=== PATIENT | female | born 1990 | race Hispanic/Latino ===

== ENCOUNTER 2022-03-10 10:11 | Observation (INO) | payer OTHER ==
[~2022-03-10] VITALS: Ht 149.9 cm; Wt 59.9 kg
[2022-03-10 10:12] VITALS: BP 132/85
[2022-03-10] MEDS ORDERED: LACTATED RINGERS 1000ML 1,000 ML IV SCH (10:30)
[2022-03-10 10:40] LABS: INFLUENZA TYPE A NEGATIVE FOR TYPE A (NEG); INFLUENZA TYPE B NEGATIVE FOR TYPE B (NEG)
[2022-03-10 10:56] LABS: APPEARANCE,URINE Clear (CLEAR); BILIRUBIN,URINE Negative (NEGATIVE); COLOR,URINE Yellow (YELLOW); GLUCOSE, URINE (UA) Negative (NEGATIVE); KETONES,URINE 40 mg/dL (NEGATIVE); LEUKOCYTE ESTERASE ,URINE Negative (NEGATIVE); NITRATE,URINE Negative (NEGATIVE); OCCULT BLOOD,URINE Negative (NEGATIVE); PH,URINE 6.5 (5.0-8.0); PROTEIN,URINE Trace mg/dL (NEGATIVE); UROBILINOGEN,URINE 0.2 mg/dL (0.2-1.0)
[2022-03-10] MEDS ORDERED: ONDANSETRON 4MG INJ IVP SCH (12:00)
== END 2022-03-10 12:45 | disposition home or self-care (01) ==
LOC: EDH 10:11 → LDH 10:12
PROVIDERS: ADMIT Obstetrics & Gynecology; ATTEND Obstetrics & Gynecology
DX: O21.2 Late vomiting of pregnancy (principal); Z20.822 Contact with and (suspected) exposure to COVID-19; O26.893 Other specified pregnancy related conditions, third trimester; R19.7 Diarrhea, unspecified; Z3A.31 31 weeks gestation of pregnancy
CPT/HCPCS: 81003; 87635; 87804 ×2; 96361; 96374; G0378 ×2; G0379; J2405; J7120; 96360

== ENCOUNTER 2023-01-06 04:30 | Emergency (ER) | payer OTHER ==
[~2023-01-06] VITALS: Ht 149.9 cm; Wt 56.7 kg
[2023-01-06] MEDS ORDERED: ONDANSETRON 4MG INJ ONE (04:51)
[2023-01-06] MEDS ORDERED: MORPHINE 4 MG SYG ONE (04:51)
[2023-01-06] MEDS ORDERED: MORPHINE 4 MG SYG IVP ONE (05:00)
[2023-01-06] MEDS ORDERED: ONDANSETRON 4MG INJ IVP ONE (05:00)
[2023-01-06 05:08] LABS: BASOPHILS % (AUTO) 0.4 % (0.0-5.0); EOSINOPHILS % (AUTO) 1.3 % (0.0-8.0); HEMATOCRIT 36.3 % (36-48); LYMPHOCYTES % (AUTO) 32.3 % (21.0-51.0); MEAN CORPUSCULAR HEMOGLOBIN 29.7 pg (27.0-33.0); MEAN CORPUSCULAR HGB CONC 33.3 g/dL (32.0-36.0); MEAN CORPUSCULAR VOLUME 89.2 fL (79-99); MONOCYTES % (AUTO) 5.2 % (3.0-13.0); NEUTROPHILS % (AUTO) 60.4 % (40.0-77.0); PLATELET COUNT (AUTO) 362 K/uL (130-400); RED BLOOD CELL COUNT(AUTO) 4.07 MIL/uL (4.00-5.50); RED CELL DISTRIBUTION WIDTH 13.6 % (11.0-15.5); WHITE BLOOD COUNT (AUTO) 13.4 K/uL (4.8-10.8)
[2023-01-06 05:12] LABS: APPEARANCE,URINE CLOUDY (CLEAR); BILIRUBIN,URINE NEGATIVE (NEGATIVE); COLOR,URINE YELLOW (YELLOW); GLUCOSE, URINE (UA) NEGATIVE (NEGATIVE); KETONES,URINE NEGATIVE (NEGATIVE); LEUKOCYTE ESTERASE ,URINE NEGATIVE Leu/uL (NEGATIVE); NITRATE,URINE NEGATIVE (NEGATIVE); OCCULT BLOOD,URINE LARGE (NEGATIVE); PROTEIN,URINE 30 mg/dL (NEGATIVE); UROBILINOGEN,URINE 0.2 mg/dL (0.2-1.0)
[2023-01-06 05:17] LABS: BACTERIA,URINE RARE /HPF (None Seen); MUCUS,URINE FEW LPF (None Seen); RBC,URINE TNTC /HPF (0-1); SQUAMOUS EPITHELIAL CELL,UR RARE /HPF (0-2)
[2023-01-06 05:18] LABS: CREATININE 0.7 mg/dL (0.5-1.5); POTASSIUM 3.1 mmol/L (3.5-5.1)
[2023-01-06 05:22] LABS: ALBUMIN 2.8 g/dL (3.5-5.0); TOTAL PROTEIN, SERUM 6.9 g/dL (6.0-8.3)
[2023-01-06] MEDS ORDERED: KCL 20 MEQ ERTAB PO ONE ×2 (05:28→05:30)
[2023-01-06] MEDS ORDERED: ONDA4TAB10 PO (08:01)
[2023-01-06] MEDS ORDERED: ACET-66 PO (08:01)
[2023-01-06 08:03] VITALS: BP 116/65
== END 2023-01-06 08:10 | disposition home or self-care (01) ==
LOC: EDH 04:30
DX: O26.832 Pregnancy related renal disease, second trimester (principal); N20.0 Calculus of kidney; O21.9 Vomiting of pregnancy, unspecified; Z3A.15 15 weeks gestation of pregnancy
CPT/HCPCS: 99285; 96374; 76700; 96375; 80053; 84702; 83690; 85025; 81001; 81025; 36415; J2405; J2270